=== PATIENT | female | born 1940 | race Caucasian/White ===

== ENCOUNTER 2021-11-10 09:53 | Outpatient (CLI) | payer MEDICARE, SELFPAY ==
[2021-11-10 12:21] LABS: Albumin* 4.2 g/dL (3.3-5.0); Chloride* 101 mmol/L (96-114)
[2021-11-10 12:22] LABS: Potassium* 4.3 mmol/L (3.6-5.1); Sodium* 138 mmol/L (135-149)
[2021-11-10 12:24] LABS: Aspartate Amino Transferase* 21 U/L (12-35); Bilirubin Total* 0.7 mg/dL (0.1-1.5); Blood Urea Nitrogen* 25 mg/dL (7-30); Carbon Dioxide* 29 mmol/L (20-32); Cholesterol* 205 mg/dL (90-199); Estimated Glomerular Filt Rate 56 ml/min
[2021-11-10 12:25] LABS: Alanine Aminotransferase* 13 U/L (4-35); Alkaline Phosphatase* 92 U/L (40-150); Glucose* 140 mg/dL (60-115); HDL Cholesterol* 54 mg/dL (>=50); LDL Cholesterol Calculated 127 mg/dL (<100); Triglycerides* 121 mg/dL (40-149)
== END 2021-11-10 09:54 | disposition home or self-care (01) ==
PROVIDERS: PCP Internal Medicine; Visit Provider Internal Medicine
DX: E03.9 Hypothyroidism, unspecified (principal); I10 Essential (primary) hypertension; E21.3 Hyperparathyroidism, unspecified; M10.9 Gout, unspecified; R73.01 Impaired fasting glucose; Z13.6 Encounter for screening for cardiovascular disorders
CPT/HCPCS: 80053; 80061; 84443

== ENCOUNTER 2021-11-14 13:58 | Outpatient (CLI) | payer MEDICARE, SELFPAY ==
--- NOTE | 2021-11-14 14:00 | CRLHL7_ITS ---
For Patients: As a result of the Cures Act, medical imaging exams and procedure reports are released immediately into your electronic medical record. You may view this report before your referring provider. If you have questions, please contact your health care provider. BILATERAL DIGITAL SCREENING MAMMOGRAM WITH COMPUTER-AIDED DETECTION, 11/14/2021 CLINICAL HISTORY: Routine screening exam. COMPARISON: 10/21/2020, 09/17/2019, 05/15/2018, 05/10/2017 TECHNIQUE: Digital mammogram in CC and MLO projections including computer-aided detection (CAD). BREAST COMPOSITION: There are scattered areas of fibroglandular density. FINDINGS: RIGHT Breast: Focal asymmetric density within the retroareolar plane, 3 cm from the nipple. LEFT Breast: No suspicious findings. IMPRESSION: RIGHT breast asymmetry/mass. RECOMMENDATIONS: Additional mammographic views of the RIGHT breast including 3D spot compression CC/MLO. RIGHT breast ultrasound may also be required. The [facility] will contact the patient for follow-up. BI-RADS Category 0: Incomplete - Need Additional Imaging Evaluation and/or Prior Mammograms for Comparison A lay language report of this examination will be provided to the patient. Dictated by Mainsh Sutherland MD @ 11/15/2021 8:25:28 AM CRL:libby RD/Dictated by: Manish Sutherland MD @ 11/15/2021 8:25:00 AM (Electronically Signed)
== END 2021-11-14 13:59 | disposition home or self-care (01) ==
LOC: MAMMO 13:59
PROVIDERS: PCP Internal Medicine; Visit Provider Internal Medicine
DX: Z12.31 Encounter for screening mammogram for malignant neoplasm of breast (principal); N63.10 Unspecified lump in the right breast, unspecified quadrant
CPT/HCPCS: 77067

== ENCOUNTER 2021-11-24 10:26 | Outpatient (CLI) | payer MEDICARE, SELFPAY ==
--- NOTE | 2021-11-24 10:45 | CRLHL7_ITS ---
For Patients: As a result of the Cures Act, medical imaging exams and procedure reports are released immediately into your electronic medical record. You may view this report before your referring provider. If you have questions, please contact your health care provider. DIGITAL DIAGNOSTIC RIGHT MAMMOGRAM USING TOMOSYNTHESIS AND COMPUTER-AIDED DETECTION RIGHT BREAST ULTRASOUND CLINICAL HISTORY: RIGHT breast mass/asymmetry. COMPARISON: 11/14/2021. TECHNIQUE: Digital RIGHT mammogram in two projections. Tomosynthesis and CAD utilized. Real-time ultrasound imaging of RIGHT breast with imaging documentation. BREAST COMPOSITION: The breast is heterogeneously dense, which may obscure small masses. FINDINGS: 3D spot compression CC/MLO RIGHT breast mammograms submitted. Persistent nodular density within the upper RIGHT breast without architectural distortion. Benign calcifications. Targeted sonogram RIGHT breast 12 o`clock 2 cm from the nipple performed. Dislocation there is a simple anechoic circumscribed cyst measuring 5 x 3 x 5 millimeters. IMPRESSION: Simple cyst RIGHT breast 12 o`clock 2 cm from the nipple measuring 5 millimeters. No evidence of malignancy. RECOMMENDATIONS: Annual BILATERAL screening mammography. Results and recommendations discussed with the patient. BI-RADS Category 2: Benign A lay language report of this examination will be provided to the patient. Dictated by Manish Sutherland MD @ 11/24/2021 11:29:31 AM jj/Dictated by: Manish Sutherland MD @ 11/24/2021 11:29:00 AM (Electronically Signed)
--- NOTE | 2021-11-24 11:15 | CRLHL7_ITS ---
For Patients: As a result of the Cures Act, medical imaging exams and procedure reports are released immediately into your electronic medical record. You may view this report before your referring provider. If you have questions, please contact your health care provider. PLEASE SEE DIGITAL DIAGNOSTIC RIGHT MAMMOGRAM PERFORMED SAME DAY CRL:vernon junior/Dictated by: Manish Sutherland MD @ 11/24/2021 11:29:00 AM (Electronically Signed)
== END 2021-11-24 10:27 | disposition home or self-care (01) ==
LOC: MAMMO 10:26
PROVIDERS: PCP Internal Medicine; Visit Provider Internal Medicine
DX: N63.10 Unspecified lump in the right breast, unspecified quadrant (principal); N60.01 Solitary cyst of right breast; R92.8 Other abnormal and inconclusive findings on diagnostic imaging of breast
CPT/HCPCS: 76642; 77065; G0279

== ENCOUNTER 2022-05-09 10:11 | Outpatient (CLI) | payer MEDICARE, SELFPAY | END 2022-05-09 10:12 | disposition home or self-care (01) | PROVIDERS: PCP Internal Medicine; Visit Provider Internal Medicine | DX: E21.3 Hyperparathyroidism, unspecified (principal); R73.01 Impaired fasting glucose; E03.9 Hypothyroidism, unspecified; I10 Essential (primary) hypertension | CPT/HCPCS: 80053; 80061; 84443 ==

== ENCOUNTER 2022-12-26 14:34 | Outpatient (CLI) | payer MEDICARE, SELFPAY ==
--- NOTE | 2022-12-26 15:00 | CRLHL7_ITS ---
For Patients: As a result of the Century Cures Act, medical imaging exams and procedure reports are released immediately into your electronic medical record. You may view this report before your referring provider. If you have questions, please contact your health care provider. RIGHT SCREENING MAMMOGRAM WITH COMPUTER-AIDED DETECTION TECHNIQUE: CC and MLO views were obtained. These mammographic images have been obtained using full-field digital technique. These mammographic images were interpreted with the benefit of computer-aided detection. COMPARISON FILM: 11/24/21, 11/14/21, 10/21/20. FINDINGS: There are scattered areas of fibroglandular density IMPRESSION: There is no radiographic evidence for malignancy. ASSESSMENT: BI-RADS Category 2: Benign RECOMMENDATION: Routine screening mammogram in 1 year. A lay language report of this examination will be provided to the patient. Manish Sutherland M.D. Diagnostic Radiologist [email or web address] TEENA/Dictated by: Manish Sutherland MD @ 12/27/2022 8:53:00 AM (Electronically Signed)
== END 2022-12-26 14:35 | disposition home or self-care (01) ==
LOC: MAMMO 14:35
PROVIDERS: PCP Internal Medicine; Visit Provider Internal Medicine
DX: Z12.31 Encounter for screening mammogram for malignant neoplasm of breast (principal)
CPT/HCPCS: 77063; 77067

== ENCOUNTER 2023-05-22 10:19 | Outpatient (CLI) | payer MEDICARE, SELFPAY | END 2023-05-22 10:20 | disposition home or self-care (01) | PROVIDERS: PCP Internal Medicine; Visit Provider Internal Medicine | DX: I10 Essential (primary) hypertension (principal); E03.9 Hypothyroidism, unspecified | CPT/HCPCS: 80053; 80061; 84443 ==

== ENCOUNTER 2023-12-28 12:53 | Outpatient (CLI) | payer MEDICARE, SELFPAY ==
--- NOTE | 2023-12-28 13:00 | CRLHL7_ITS ---
For Patients: As a result of the Century Cures Act, medical imaging exams and procedure reports are released immediately into your electronic medical record. You may view this report before your referring provider. If you have questions, please contact your health care provider. RIGHT SCREENING MAMMOGRAM WITH COMPUTER-AIDED DETECTION AND TOMOSYNTHESIS TECHNIQUE: CC and MLO views were obtained. These mammographic images have been obtained using full-field digital technique. These mammographic images were interpreted with the benefit of computer-aided detection. Breast Tomosynthesis was used in this interpretation. COMPARISON FILM: 12/26/22, 11/24/21, 11/14/21. FINDINGS: The breasts are heterogeneously dense, which may obscure small masses IMPRESSION: There is no radiographic evidence for malignancy. ASSESSMENT: BI-RADS Category 2: Benign RECOMMENDATION: Routine screening mammogram in 1 year. A lay language report of this examination will be provided to the patient. Manish Sutherland M.D. Diagnostic Radiologist [email or web address] TEENA/Dictated by: Manish Sutherland MD @ 12/31/2023 12:40:00 PM (Electronically Signed)
== END 2023-12-28 12:54 | disposition home or self-care (01) ==
LOC: MAMMO 12:55
PROVIDERS: PCP Internal Medicine; Visit Provider Internal Medicine
DX: Z12.31 Encounter for screening mammogram for malignant neoplasm of breast (principal); R92.333 Mammographic heterogeneous density, bilateral breasts
CPT/HCPCS: 77063; 77067

== ENCOUNTER 2024-05-15 10:14 | Outpatient (CLI) | payer MEDICARE, SELFPAY | END 2024-05-15 10:15 | disposition home or self-care (01) | PROVIDERS: PCP Internal Medicine; Visit Provider Internal Medicine | DX: I10 Essential (primary) hypertension (principal); E78.5 Hyperlipidemia, unspecified; E03.9 Hypothyroidism, unspecified; E21.3 Hyperparathyroidism, unspecified | CPT/HCPCS: 80053; 80061; 84443 ==

== ENCOUNTER 2024-05-27 10:13 | Outpatient (RCR) | payer MEDICARE, SELFPAY ==
--- NOTE | 2024-05-27 12:15 | OT.OPGNE2 ---
OT Outpatient General/Neuro Eval OT Outpatient General/Neuro Eval* Start: 05/27/24 10:50 Freq: Status: Active Protocol: Document 05/27/24 10:51 CSS (Rec: 05/27/24 12:12 CSS [id number]) E-signed By Melania Fair OTR/L OT Outpatient Evaluation Details Type Type Eval Complexity Low Insurance Information Insurance Information Insurance Information Medicare B Outpatient History/Precautions Current Condition Referring Provider Dr. Acosta Medical Diagnoses R41.3- other amnesia Medical/Functional History Medical History Reviewed Yes Prior Level of Function/Mobility indep with ADLs/IADLs with exception of driving. Pt edits local newspaper. Social History Type of Dwelling Assisted Living Lives With: Alone Patient Subjective Subjective Patient Subjective Pt reports difficulty with word retrieval, specifically of people's names. Pt notes it has been happening more frequently. Pt also notes forgetfulness and provides example of going to kitchen and not remembering what she needs; she states its momentary and often can self correct. Pt notes this can happen multiple times a day. Pt notes indep with ADLs/IADLs . Pt does not drive; [facility] provides transportation to pt. Pt lives at [facility] at [facility]. Pt notes sometimes forgets to take her evening pills. Pt notes that she puts a honing machine operator semiautomatic her calendar at her door to indicate she's fine to the nursing staff however she has forgotten to do that 3x this month and she states that is new. Pain Assessment Pain Pain No Cognitive Assessments Performed Cognitive Assessments Performed [place] Cognitive Assessment (MOCA) Results MOCA 8.2 administered today. Pt scored 29/30 indicating normal cognitive functioning. Vision/Hearing Vision Vision Changes Comments Pt had cataract surgery- approx 10 years ago; Assessment Assessment Assessment Pt is an 84 year old female who is referred to OT due to memory concerns. Pt scoring within normal range on cog assessment today. OT educates on compensatory techniques but pt is not receptive. OT also suggests speech therapy referral due to word finding difficulties and higher level cog testing, but pt declines at this time. Pt will continue with crossword puzzles, reading, and editing newspaper for cognitive tasks/ activities. She reports her cognition concerns do not impact her daily life where she needs ongoing therapy. Occupational Therapy Treatment Plan - OP Goals Goals Pt will participate in cog testing. - goal met Pt will be able to verbalize compensatory strategies to help with IADLs. - goal in progress Treatment Plan Treatment Plan Evaluation,Self-Care/Home Management,Education Expected Frequency 1x Week Expected Duration 4-6 Weeks Certification Certification Statement I Certify That: Therapy Services Provided, Therapy Plan Established, Therapy Plan Reviewed Certification Information Clinic ID # [id number] Initial Certification Date 05/27/24 Provider Signature Required Yes Provider Signature Shows Agreement With POC & Medical Necessity Physician NPI Number Write NPI# Here Physician Comment/Change Comment or Changes Physician Signature & Date Requested Please Sign/Date Here
== END 2024-09-24 23:59 | disposition home or self-care (01) ==
PROVIDERS: PCP Internal Medicine; Visit Provider Internal Medicine
DX: R41.3 Other amnesia (principal); Z51.89 Encounter for other specified aftercare
CPT/HCPCS: 97165; 97535

== ENCOUNTER 2024-10-20 01:06 | Outpatient (CLI) | payer MEDICARE, SELFPAY | END 2024-10-20 01:07 | disposition home or self-care (01) | LOC: AMB 10-21 10:21 | PROVIDERS: PCP Internal Medicine; Visit Provider Family Medicine | DX: R53.1 Weakness (principal) | CPT/HCPCS: A0425; A0429 ==

== ENCOUNTER 2024-10-20 01:55 | Emergency (ER) | payer MEDICARE, SELFPAY ==
[2024-10-20 02:04] VITALS: BP 145/68; PULSE 119; RESP 16; TEMP 36.7; O2SAT 97; BMI 25.9
--- NOTE | 2024-10-20 02:38 | ED.GENADULT ---
HPI - General Adult General Chief complaint: Laceration/Wound Stated complaint: fall Time Seen by Provider: 10/20/24 02:01 Source: patient and EMS History of Present Illness HPI narrative: 84-year-old female presents to the emergency department for evaluation of a skin tear on her right lower leg. Patient lives in an assisted living but does not really receive any services. She uses a walker to ambulate at baseline. She reports that her bed is extremely high. She has to almost jump up into it but likes the fact that it is easy to get out of. She reports that she went to jump up into the bed tonight and did not make it all the way, sliding down the side of the bed and falling onto the ground. She received a cut to her right calf area and needed assistance getting up. She denies pain in any other area. She specifically denies ankle pain, knee pain, hip pain, back pain, neck pain, shoulder pain, wrist or elbow pain or head pain. She is confident there was no loss of consciousness. There were not any other signs of major injury at the scene per EMS. They tried applying some bleed stopping powder with no significant improvement. She does not take any anticoagulants. She has a history of hypertension, reports use of amlodipine and losartan. No fever or recent illness. No neurological changes. Adamantly reports that the fall was purely mechanical. ROS is negative for generalized, HEENT, musculoskeletal, neurological or other skin concerns besides the cut to the right leg. Related Data Home Medications ?Medication ?Instructions ?Recorded ?Confirmed cholecalciferol (vitamin D3) 10 10 mcg PO QDAY 11/10/21 05/15/24 mcg (400 unit) tablet ibuprofen 200 mg capsule 200 mg PO .Q6h Prn 11/10/21 05/15/24 multivitamin 1 tab PO QDAY 11/10/21 05/15/24 calcium 333 mg-vit D3 200 1 tab PO ONCE 05/15/24 05/15/24 unit-magnesium 133 mg-zinc 5 mg tablet prednisone 20 mg tablet 20 mg PO BID PRN 05/15/24 05/15/24 vitamins A,C,D-xmri-sypoud 4,296 1 cap PO BID 05/15/24 05/15/24 mcg-226 mg-90 mg capsule (PreserVision AREDS) Previous Rx's ?Medication ?Instructions ?Recorded amlodipine 2.5 mg tablet (Norvasc) 2.5 mg PO QDAY Hypertension #90 05/15/24 tabs losartan 100 mg tablet 100 mg PO QDAY Hypertension #90 05/15/24 tabs levothyroxine 75 mcg tablet 75 mcg PO QDAY #90 tabs 05/20/24 Allergies Allergy/AdvReac Type Severity Reaction Status Date / Time Lisinopril Allergy Mild nausea Uncoded 05/15/24 09:53 PFSH PFS Medical History Rheumatic fever ?I00 - Rheumatic fever without heart involvement (ICD-10) Memory deficit ?R41.3 - Other amnesia (ICD-10) Macular degeneration ?H35.30 - Unspecified macular degeneration (ICD-10) Surgical History H/O mastectomy ?Z90.10 - Acquired absence of unspecified breast and nipple (ICD-10) History of hysterectomy ?Z90.710 - Acquired absence of both cervix and uterus (ICD-10) Social History What is your current living situation?: I presently have a place to live Problems where you live: no known problems In the past 12 months, utilities in danger of being shut off: no In past 12 months, lack of transportation kept you from medical appts, meetings, work, or getting things needed for daily living: no In the past 12 mos, have been you worried that your food would run out before you had money to buy more?: never true In the past 12 mos, the food you bought just didn't last and you didn't have money to buy more?: never true Smoking Status: Never smoker Second hand tobacco smoke exposure: No How often do you have a drink containing alcohol: never AUDIT-C Alcohol total score: 0 Non-prescribed substance use: denies use How often does anyone, including family, friends and others, physically hurt you: never How often does anyone, including family, friends and others, insult or talk down to you: never How often does anyone, including family, friends and others, threaten you with harm: never How often does anyone, including family, friends and others, scream or curse at you: never Exam Const: Vital Signs, click to edit/add: Vital Signs - 24 hr 10/20/24 02:04 Temperature 98.1 F Pulse Rate [Pulse Oximeter] 119 H Respiratory Rate 16 Blood Pressure [Ri ght Upper Arm] 145/68 H Pulse Oximetry 97 Oxygen Delivery Me thod Room Air Documenting provider has reviewed patient's vital signs: yes Common normals: no apparent distress General appearance: cooperative Other: Very mild memory impairment but is able to list her medications, good historian on the details of tonight. Does appear well nourished and well hydrated. HENMT: Common normals: normocephalic, moist oral mucous membranes, oropharynx normal and dentition normal Head and scalp: normocephalic Other: No signs of tongue biting or seizure Eye: Common normals: PERRL General eye: normal appearance of both eyes Pupil: PERRL Neck & C-Spine: Common normals: full ROM General: normal visual inspection Resp: Common normals: normal respiratory effort and clear to auscultation bilaterally Effort & inspection: able to speak in complete sentences Auscultation: clear to auscultation bilaterally Cardio: Common normals: regular rate, regular rhythm, S1 normal heart sound and S2 normal heart sound Rate: regular rate Rhythm: regular rhythm Heart sounds: S1 normal and S2 normal GI: Common normals: Normal to inspection, nondistended, normoactive bowel sounds present, soft to palpation and non-tender Palpation: soft Extremity: Other: Skeletal survey revealing no tenderness to the clavicles, upper arms, lower arms, wrists or hands. No palpable tenderness to the pelvis, suprapubic area, femurs, knees, ankles or feet. There are many age related degenerative changes and joint enlargements but no effusions bruising or signs of acute injury to these. On the right mid medial townsend, there is a 4 cm wide by 1 cm tall curved skin tear, epidermal depth in midline. Some dermal involvement but no soft tissue, muscle or underlying tissues. No evidence of foreign bodies. With counter traction, skin does reapproximate. Neuro: Common normals: moves all extremities Speech: speech normal Other: After correction of laceration, ?road test? shows that patient can stand and ambulate with her walker but does seem fairly frail. There were no new appreciated areas of pain or movement deficits with this test Psych: Common normals: cooperative Appearance: grossly normal Insight: fair Judgement: fair Skin: Common normals: no rashes or lesions noted General skin exam: no rashes or lesions noted Course Course ED Course: 84-year-old female with mechanical fall resulting in laceration of right townsend. Counseled on management options. Sutures certainly would be fine but I think she will tolerate Steri-Strips better and it would not require the need to return to the clinic for stitch removal. She would prefer this management option. Area was cleansed gently with soap and water, no signs of foreign body seen, patted dry. Area in question was covered with Mastisol, then too long Steri-Strips were used to reapproximate the wound. Since she has so much dry skin, I did add to extra wide Steri-Strips in the opposite direction horizontally for reinforcement and sealed just the edges of this large rectangle in Dermabond. Wound closed very well and was hemostatic at end of procedure. I spent some time thin questioning patient on safety in her home. The bed is certainly too high for her safety at this time. I reviewed options including replacing her current box spring for a shorter option or removing the bed frame to allow the box spring and mattress to sit on the floor. She tells me she would not want to do this because that would be harder to get up. I show her different bed mobility aids from a printout that would be better options for her and have included 1 of these handouts with her discharge paperwork. She will continue use of the walker for ambulation but I do think her frailty is starting to show and she should consider a higher level of care within the next few months. Written instructions for this were provided as well. Counseled that Tylenol is safe to use for aches and pains and any alarm symptoms would warrant return to the emergency room. Her son is going to pick her up. She verbalizes understanding and agreement and no further questions. Vital Signs Vital signs: Initial Vital Signs Temperature 98.1 F 10/20/24 02:04 Temperature Source Temporal Artery Scan 10/20/24 02:04 Pulse Rate 119 H 10/20/24 02:04 Respiratory Rate 16 10/20/24 02:04 Blood Pressure 145/68 H 10/20/24 02:04 Blood Pressure Mean 93 10/20/24 02:04 Blood Pressure Position Sitting 10/20/24 02:04 Pulse Oximetry 97 10/20/24 02:04 Oxygen Delivery Method Room Air 10/20/24 02:04 Vital Signs Temperature 98.1 F 10/20/24 02:04 Pulse Rate 119 H 10/20/24 02:04 Respiratory Rate 16 10/20/24 02:04 Blood Pressure 145/68 H 10/20/24 02:04 Pulse Oximetry 97 10/20/24 02:04 Oxygen Delivery Method Room Air 10/20/24 02:04 Temperature 98.1 F 10/20/24 02:04 Pulse Rate 119 H 10/20/24 02:04 Respiratory Rate 16 10/20/24 02:04 Blood Pressure 145/68 H 10/20/24 02:04 Pulse Oximetry 97 10/20/24 02:04 Oxygen Delivery Method Room Air 10/20/24 02:04 Discharge Plan Discharge Clinical Impression: Skin tear of lower leg without complication Patient Disposition: Home w/ Parent or Adult Condition: Improved Instructions: Skin Adhesive Strips (ED) Additional Instructions: As we discussed, the tear in your skin was not particularly deep so we were able to close this with some Steri-Strips and special medical glue. Those special strips will stay in place for about 1-2 weeks and allow the skin to heal underneath in the meantime. We covered it with a dressing just for today but you do not need to leave it covered. It is okay to shower and clean as usual but do not aggressively scrubbed over those strips, as the underlying skin will require time to heal. We did not detect any major signs of injury from your fall. It is okay to use Tylenol 1000 mg 3 times daily as needed for general aches and pains. I do have significant concerns about safety within your apartment since her bed is so high. Please consider asking family, friends or hiring a line appliance assembler to talk to you about options to lower the bed. For many people, buying a smaller box spring, moving to a lower position on your head and footboard or removing the head in footboard entirely can make a huge difference in safety. Many people like having the bed high because it is easier to get out of but this often leads to more falls. Having the bed lower and use of a assistive device next to the bed tends to be most helpful. I will give you a print out of 1 of these such devices to consider purchasing. We have notice that your mobility seems to certainly be declining. You may need to consider use of a wheelchair or a higher level of care in the next few months. I do encourage you to start researching these options. Activity Level: Activity as Tolerated and Use Walker Discharge Diet: Regular Prescriptions: No Action ibuprofen 200 mg capsule 200 mg PO .Q6h Prn multivitamin Tablet 1 tab PO QDAY cholecalciferol (vitamin D3) 10 mcg (400 unit) tablet 10 mcg PO QDAY calcium carb-D3-mag [id number] 333 mg-200 unit -133 mg-5 mg tablet 1 tab PO ONCE Rx Instructions: administer with a meal prednisone 20 mg tablet 20 mg PO BID PRN PreserVision AREDS 4,296 mcg-226 mg-90 mg capsule 1 cap PO BID losartan 100 mg tablet 100 mg PO QDAY Qty: 90 3RF amlodipine [Norvasc] 2.5 mg tablet 2.5 mg PO QDAY Qty: 90 3RF levothyroxine 75 mcg tablet 75 mcg PO QDAY Qty: 90 3RF Follow Up/Referrals: Chris Acosta MD [Primary Care Provider, Internal Medicine] Stand Alone Forms: LightTable Info Instructions
[2024-10-20 02:41] VITALS: BP 145/68; PULSE 119; RESP 16; TEMP 36.7
[2024-10-20 02:54] VITALS: BP 135/74; PULSE 100; RESP 16; TEMP 36.7; O2SAT 97
== END 2024-10-20 03:10 | disposition home or self-care (01) ==
PROVIDERS: Emergency Provider Family Medicine; PCP Internal Medicine
DX: S81.811A Laceration without foreign body, right lower leg, initial encounter (principal); W26.9XXA Contact with unspecified sharp object(s), initial encounter
CPT/HCPCS: 12002; 99282; 99283

== ENCOUNTER 2024-10-20 16:25 | Outpatient (CLI) | payer MEDICARE, SELFPAY | END 2024-10-20 16:26 | disposition home or self-care (01) | LOC: AMB 10-21 11:18 | PROVIDERS: PCP Internal Medicine; Visit Provider Emergency Medicine Emergency Medical Services | DX: R53.1 Weakness (principal) | CPT/HCPCS: A0425; A0427 ==

== ENCOUNTER 2024-10-20 16:59 | Emergency (ER) | payer MEDICARE, SELFPAY ==
[2024-10-20] VITALS (24 sets, daily range): BP systolic 131–176; BP diastolic 57–113; PULSE 86–98; RESP 8–21; TEMP 36.9; O2SAT 75–99; BMI 25.6
--- NOTE | 2024-10-20 17:51 | ED.WEAKNESS ---
HPI - Weakness General Time Seen by Provider: 17:51 Date Seen: 10/20/24 Chief complaint: Weakness Stated complaint: Fall/Weakness Time Seen by Provider: 10/20/24 17:16 Source: patient, EMS and RN notes reviewed Mode of arrival: EMS Limitations: no limitations History of Present Illness HPI Narrative: This 84-year-old female is brought in by the ambulance from her assisted living on [facility]. She lives independent in this assisted living. She did come in overnight, had a skin tear after not being able to get up into her bed, fell. She notes after she got home, later could not get out of her recliner, could not get off the toilet by herself. She has been walker dependent since 1999 for per her report. She ambulates with her walker fine usually. This weakness is new. She felt like she had a temperature earlier, was 100? F for her but is afebrile here. She notes no pain anywhere, denies any focal symptoms respiratory issues, she does not feel ill just weak. She has no abdominal symptoms, she has decreased sensation her legs, right is worse than the left, this is baseline for her. She has had urinary tract infections remotely in the past, does not feel like she has urinary symptoms now. She has no source of illness on questioning. Related Data Home Medications ?Medication ?Instructions ?Recorded ?Confirmed cholecalciferol (vitamin D3) 10 10 mcg PO QDAY 11/10/21 05/15/24 mcg (400 unit) tablet ibuprofen 200 mg capsule 200 mg PO .Q6h Prn 11/10/21 05/15/24 multivitamin 1 tab PO QDAY 11/10/21 05/15/24 calcium 333 mg-vit D3 200 1 tab PO ONCE 05/15/24 05/15/24 unit-magnesium 133 mg-zinc 5 mg tablet prednisone 20 mg tablet 20 mg PO BID PRN 05/15/24 05/15/24 vitamins A,C,Y-eabk-olqjat 4,296 1 cap PO BID 05/15/24 05/15/24 mcg-226 mg-90 mg capsule (PreserVision AREDS) Previous Rx's ?Medication ?Instructions ?Recorded amlodipine 2.5 mg tablet (Norvasc) 2.5 mg PO QDAY Hypertension #90 05/15/24 tabs losartan 100 mg tablet 100 mg PO QDAY Hypertension #90 05/15/24 tabs levothyroxine 75 mcg tablet 75 mcg PO QDAY #90 tabs 05/20/24 Allergies Allergy/AdvReac Type Severity Reaction Status Date / Time Lisinopril Allergy Mild nausea Uncoded 05/15/24 09:53 Review of Systems Status of ROS: Reports: 6 or more systems reviewed and unremarkable except as noted in History and below PFSH PFS Medical History Rheumatic fever ?I00 - Rheumatic fever without heart involvement (ICD-10) Memory deficit ?R41.3 - Other amnesia (ICD-10) Macular degeneration ?H35.30 - Unspecified macular degeneration (ICD-10) Surgical History H/O mastectomy ?Z90.10 - Acquired absence of unspecified breast and nipple (ICD-10) History of hysterectomy ?Z90.710 - Acquired absence of both cervix and uterus (ICD-10) Social History What is your current living situation?: I presently have a place to live Problems where you live: no known problems In the past 12 months, utilities in danger of being shut off: no In past 12 months, lack of transportation kept you from medical appts, meetings, work, or getting things needed for daily living: no In the past 12 mos, have been you worried that your food would run out before you had money to buy more?: never true In the past 12 mos, the food you bought just didn't last and you didn't have money to buy more?: never true Smoking Status: Never smoker Second hand tobacco smoke exposure: No How often do you have a drink containing alcohol: never AUDIT-C Alcohol total score: 0 Non-prescribed substance use: denies use How often does anyone, including family, friends and others, physically hurt you: never How often does anyone, including family, friends and others, insult or talk down to you: never How often does anyone, including family, friends and others, threaten you with harm: never How often does anyone, including family, friends and others, scream or curse at you: never Exam Const: Vital Signs, click to edit/add: Vital Signs - 24 hr 10/20/24 17:13 10/20/24 18:58 10/20/24 19:31 Temperature 98.4 F Pulse Rate 90 Pulse Rate [Pulse Oximeter] 95 Respiratory Rate 18 13 Blood Pressure 149/69 H Blood Pressure [Ri ght Upper Arm] 131/57 L Pulse Oximetry 95 97 Oxygen Delivery Me thod Room Air 10/20/24 20:02 Temperature Pulse Rate Pulse Rate [Pulse Oximeter] Respiratory Rate 11 L Blood Pressure Blood Pressure [Ri ght Upper Arm] Pulse Oximetry Oxygen Delivery Me thod This 84-year-old female is alert, interactive, no apparent distress. She is very pleasant, articulate, speech is normal. Face atraumatic, sclera clear, conjugate gaze. Neck is supple, no masses. Lungs are clear, no wheezing or crackles, no tachypnea, no accessory muscle use. CV regular rate and rhythm, no significant murmur heard. Abdomen is soft, nontender, nondistended, no organomegaly. She has about 3 to 4+ edema of her lower extremities, there is no area of warmth. She has a bandage on her right mid leg, did peak underneath it and see Steri-Strips, skin tear seems to be in good opposition with the Steri-Strips. I note no focal warmth or visible changes of cellulitis of her lower extremities. Documenting provider has reviewed patient's vital signs: yes Course Course ED Course: This is a patient with complaint of increasing weakness. She reports a fever at home. Infectious etiology certainly needs to be considered. We have discussed that we will do blood work, look at portable chest x-ray and obtain urinalysis. Will also get a triple viral swab. Right now she is hemodynamically stable, is not meeting any criteria for sepsis, afebrile here. If she does spike a fever or has clinical changes, may need to consider blood cultures in fluid resuscitation. At this time she does not require any of this on presenting examination and vitals. Reevaluation(s) Time of Reevaluation #1: 19:18 Reevaluation #1: Reviewed with patient that her liver enzymes and troponin are elevated. She is having no pain. She is not short of breath, not tachypneic. Re-evaluated her abdomen, has no abdominal pain on palpation. Now that she is in a room and not in the hallway, do see that there might be some suggestion of scleral icterus, bilirubin is elevated. She understands were going to proceed with CT of her chest abdomen pelvis, will give her some IV fluids as her estimated creatinine clearance is lower. Time of Reevaluation #2: 20:58 Reevaluation #2: Reviewed with Loli her CT findings. The radiologist had called to let me know. I had also spoken with her son. She understands that this is likely surgical, this is not something we are going to be able to do here. I did confirm this with our surgeon, this is beyond our scope of care here in our hospital. We also reviewed with Loli that her heart enzyme is elevated, likely indicating strain on her heart. She is not having any abdominal pain, no chest pain. I will be ordering antibiotics, have ordered Zosyn 3.375 mg, further doses can be lowered. She understands she will need transfer and thus will likely be surgical. We are looking to [facility] system for transfer. Consultations Consultation #1: Did speak with Dr. Henderson the general surgeon for [facility]. We reviewed the case. He will accept on behalf the general surgery. They will be paging out the hospitalist. 9:55 p.m.: Did speak with the hospitalist from [facility] Dr. Garcia. Reviewed patient's case, he will accept. There is up to 8 hour bed delay. We will update them if there is any change in patient's status. Time: 21:36 Vital Signs Vital signs: Initial Vital Signs Temperature 98.4 F 10/20/24 17:13 Temperature Source Temporal Artery Scan 10/20/24 17:13 Pulse Rate 95 10/20/24 17:13 Respiratory Rate 18 10/20/24 17:13 Blood Pressure 131/57 L 10/20/24 17:13 Blood Pressure Mean 81 10/20/24 17:13 Blood Pressure Position Supine 10/20/24 17:13 Pulse Oximetry 95 10/20/24 17:13 Oxygen Delivery Method Room Air 10/20/24 17:13 Vital Signs Temperature 98.4 F 10/20/24 17:13 Pulse Rate 95 10/20/24 17:13 Respiratory Rate 18 10/20/24 17:13 Blood Pressure 131/57 L 10/20/24 17:13 Pulse Oximetry 95 10/20/24 17:13 Oxygen Delivery Method Room Air 10/20/24 17:13 Temperature 98.4 F 10/20/24 17:13 Pulse Rate 86 10/20/24 22:45 Respiratory Rate 13 10/20/24 23:15 Blood Pressure 172/66 H 10/20/24 23:02 Pulse Oximetry 88 10/20/24 22:45 Oxygen Delivery Method Room Air 10/20/24 17:13 Medications Administered Medications: Discontinued Medications Generic Name Dose Route Start Last Admin Trade Name Freq PRN Reason Stop Dose Admin Sodium Chloride 500 mls @ 500 mls/hr 10/20/24 19:21 10/20/24 21:34 0.9 % Sodium Chloride 500 Ml IV 10/20/24 20:20 Infused .Q1H ONE Infusion Piperacillin Sod/Tazobactam 100 mls @ 200 mls/hr 10/20/24 20:58 10/20/24 22:31 Sod 3.375 gm/ Sodium Chloride IVPB 10/20/24 20:59 Infused ONCE ONE Infusion Potassium Chloride/Sodium Chloride 1,000 mls @ 100 mls/hr 10/20/24 21:45 10/20/24 22:33 0.9 % Sodium Ch + Kcl 20 Meq/L IV 100 mls/hr .Q10H DAVID Administration MDM - Weakness Lab Data Attestation: I reviewed the patient's lab results. Labs: Lab Results 10/20/24 10/20/24 Range/Units 18:22 22:25 WBC 16.59 H (4.50-11.00) K/uL RBC 4.43 (4.00-5.20) m/uL Hgb 13.8 (12.0-16.0) gm/dL Hct 41.3 (33.0-51.0) % MCV 93 (80-100) fL MCH 31 (26-34) pg MCHC 33 (32-36) gm/dL RDW Coeff of Danish 15.3 (11.5-15.5) % Plt Count 191 (140-440) K/uL Neut % (Auto) 85.8 H (42.0-72.0) % Lymph % (Auto) 5.5 L (20-44) % [place] % (Auto) 8.2 (0.0-11.0) % Eos % (Auto) 0.0 (0.0-7.0) % Baso % (Auto) 0.1 (0.0-3.0) % Neut # (Auto) 14.20 H (1.7-7.0) K/uL Lymph # (Auto) 0.90 (0.90-2.90) K/uL [place] # (Auto) 1.40 H (0.00-0.90) K/UL Eos # (Auto) 0.00 (0.00-0.50) K/uL Baso # (Auto) 0.00 (0.00-0.30) K/uL Abs Immat Gran (auto) 0.10 (0.00-0.30) K/uL Imm/Tot Granulo (auto) 0.4 % Sodium 136 (135-149) mmol/L Potassium 3.9 (3.6-5.1) mmol/L Chloride 103 (96-114) mmol/L Carbon Dioxide 29 (20-32) mmol/L Anion Gap 4 L (7-15) mEq/L BUN 39 H (7-30) mg/dL Creatinine 1.0 (0.5-1.5) mg/dL Estimated Creat Clear 35.52 Estimated GFR 55 ml/min Glucose 130 H (60-115) mg/dL Lactate 1.3 (0.5-1.9) mmol/L Calcium 10.4 (8.4-10.6) mg/dL Magnesium 2.3 (1.5-2.6) mg/dL Total Bilirubin 4.3 H (0.1-1.5) mg/dL AST 375 H (12-35) U/L ALT 451 H (4-35) U/L Alkaline Phosphatase 161 H (40-150) U/L Troponin I 1.18 H* 0.95 H* (0.01-0.04) ng/mL C-Reactive Protein 14.7 H (0.5-1.0) mg/dL NT-Pro-B Natriuret Pep 9320 H (See Note) pg/mL Total Protein 6.6 (6.0-8.3) g/dL Albumin 3.6 (3.3-5.0) g/dL TSH 0.439 (0.270-4.200) uIU/mL SARS-CoV-2 (PCR) Negative SARS-CoV-2 (Negative) Influenza Type A (PCR) Negative PCR FLU A (Negative) Influenza Type B (PCR) Negative PCR FLU B (Negative) RSV (PCR) Negative PCR RSV (Negative) Imaging Data Chest x-ray: Attestation: I have reviewed the pertinent imaging results. Radiologist's impression: Patient: LOLI MCDONALD Facility:?[facility] Patient ID:?[id number] Site Patient ID:?[id number]. Site :?[id number] Study:?XRay-Chest 2V-10/20/2024 6:34:08 PM Ordering Physician:?Arvind Lakhani Final Report: INDICATION: Weakness. TECHNIQUE: Chest 2 views. COMPARISON: None. FINDINGS: Cardiovascular and mediastinum: Heart size is normal. Unremarkable mediastinum. Lungs and pleural spaces: Lungs are clear. No sign of infiltrate or mass. No sign of pleural effusion. No pneumothorax. Bones and soft tissues: No significant findings. IMPRESSION: Negative chest. Dictated by Abram Ball MD @ 10/20/2024 6:48:52 PM (Electronic Signature) CT Chest/Ab/Pelvis: Attestation: I have reviewed the pertinent imaging results. Radiologist's impression: Patient: LOLI MCDONALD Facility:?[facility] Patient ID:?[id number] Site Patient ID:?[id number]. Site :?[id number] Study:?CT-Chest/Abd/Pelvis W/IV-10/20/2024 7:58:22 PM Ordering Physician:Maddy Lakhani Final Report: INDICATIONS: Weakness. Elevated troponin. Elevated liver enzymes. History of breast cancer. TECHNIQUE: CT chest, abdomen and pelvis acquired with 51 cc of Isovue 370 IV contrast. COMPARISON: None. FINDINGS: Chest: No pleural or pericardial effusions. No pathologic lymphadenopathy. Atherosclerotic disease. Thoracic aorta and main pulmonary arteries are normal in caliber. 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 Coronary artery calcifications. Heart size is within normal limits. Soft tissues of the thoracic wall are unremarkable. No pneumothorax. Central airways are patent. Mild bibasilar atelectasis. Lungs are otherwise clear. Abdomen: Diffuse intra and extrahepatic biliary ductal dilatation. Common bile duct measures up to [address] evidence of choledocholithiasis. Probable cholelithiasis with gas in the gallbladder. Diffuse heterogeneity of the gallbladder wall with mild pericholecystic fat stranding. Ill-defined fluid and fat stranding contacts the 2nd portion of the duodenum there is possible fistulous communication between the gallbladder and 2nd portion of the duodenum, for example on axial images 58-61. Spleen, pancreas and adrenal glands are unremarkable. No urolithiasis, hydronephrosis or suspicious renal lesion. 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 Colonic diverticulosis without evidence of acute diverticulitis. No bowel obstruction. No pathologic lymphadenopathy or free fluid. Atherosclerotic disease. No abdominal aortic aneurysm. Pelvis: Hysterectomy. Bladder is unremarkable. Sigmoid diverticulosis without evidence of acute diverticulitis. No pelvic lymphadenopathy or free fluid. Bone windows: No acute or suspicious osseous abnormality. Degenerative changes spine and pelvis. IMPRESSION: 1. 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 2. Diffuse intra and extrahepatic biliary ductal dilatation. Common bile duct measures up to [address] evidence of choledocholithiasis. Gastroenterology consultation regarding further management recommended. 3. No evidence of acute disease in the chest. Discussed with Dr. Nolasco by telephone at 8:36 p.m. on 10/20/2024. Dictated by Raghavendra Madison MD @ 10/20/2024 8:39:22 PM Please note that all CT scans at this facility use dose modulation, iterative reconstruction, and/or weight-based dosing when appropriate to reduce radiation dose to as low as reasonably achievable. Dictated by: Raghavendra Madison MD @ 10/20/2024 20:40:02 (Electronic Signature) ECG Data Attestation: I personally reviewed and interpreted this ECG as follows: (Normal sinus rhythm, 84 beats per minute. Nonspecific T-wave changes.) ECG interpretation date: 10/20/24 ECG interpretation time: 18:26 Prior ECG tracings: not available for review Discharge Plan Discharge Clinical Impression: Cholecystitis, Elevated troponin Prescriptions: No Action ibuprofen 200 mg capsule 200 mg PO .Q6h Prn multivitamin Tablet 1 tab PO QDAY cholecalciferol (vitamin D3) 10 mcg (400 unit) tablet 10 mcg PO QDAY calcium carb-D3-mag [id number] 333 mg-200 unit -133 mg-5 mg tablet 1 tab PO ONCE Rx Instructions: administer with a meal prednisone 20 mg tablet 20 mg PO BID PRN PreserVision AREDS 4,296 mcg-226 mg-90 mg capsule 1 cap PO BID losartan 100 mg tablet 100 mg PO QDAY Qty: 90 3RF amlodipine [Norvasc] 2.5 mg tablet 2.5 mg PO QDAY Qty: 90 3RF levothyroxine 75 mcg tablet 75 mcg PO QDAY Qty: 90 3RF Follow Up/Referrals: Chris Acosta MD [Primary Care Provider, Internal Medicine] Stand Alone Forms: TRAFI Info Instructions
--- NOTE | 2024-10-20 18:01 | CRLHL7_ITS ---
For Patients: As a result of the Century Cures Act, medical imaging exams and procedure reports are released immediately into your electronic medical record. You may view this report before your referring provider. If you have questions, please contact your health care provider. INDICATION: Weakness. TECHNIQUE: Chest 2 views. COMPARISON: None. FINDINGS: Cardiovascular and mediastinum: Heart size is normal. Unremarkable mediastinum. Lungs and pleural spaces: Lungs are clear. No sign of infiltrate or mass. No sign of pleural effusion. No pneumothorax. Bones and soft tissues: No significant findings. IMPRESSION: Negative chest. Dictated by Abram Ball MD @ 10/20/2024 6:48:52 PM (Electronically Signed)
[2024-10-20 18:29] LABS: Lactate* 1.3 mmol/L (0.5-1.9)
[2024-10-20 18:30] LABS: Hematocrit* 41.3 % (33.0-51.0); Hemoglobin* 13.8 gm/dL (12.0-16.0); Immature Granulocytes Pct Auto 0.4 %; Mean Corpuscular HGB Conc 33 gm/dL (32-36); Mean Corpuscular Hemoglobin 31 pg (26-34); Mean Corpuscular Volume 93 fL (80-100); RDW Coefficient of Variation % 15.3 % (11.5-15.5); Red Blood Count* 4.43 m/uL (4.00-5.20); White Blood Count* 16.59 K/uL (4.50-11.00)
[2024-10-20 18:36] LABS: Immature Granulocytes Abs Auto 0.10 K/uL (0.00-0.30); Lymphocytes Absolute Auto 0.90 K/uL (0.90-2.90); Slide Review Reflex No
[2024-10-20 18:41] LABS: Albumin* 3.6 g/dL (3.3-5.0); Chloride* 103 mmol/L (96-114)
[2024-10-20 18:42] LABS: Potassium* 3.9 mmol/L (3.6-5.1); Sodium* 136 mmol/L (135-149)
[2024-10-20 18:44] LABS: Alanine Aminotransferase* 451 U/L (4-35); Aspartate Amino Transferase* 375 U/L (12-35); Blood Urea Nitrogen* 39 mg/dL (7-30); Creatinine* 1.0 mg/dL (0.5-1.5); Est. Creatinine Clearance* 35.52; Estimated Glomerular Filt Rate 55 ml/min
[2024-10-20 18:45] LABS: Alkaline Phosphatase* 161 U/L (40-150); Anion Gap 4 mEq/L (7-15); Bilirubin Total* 4.3 mg/dL (0.1-1.5); Calcium* 10.4 mg/dL (8.4-10.6); Carbon Dioxide* 29 mmol/L (20-32); Glucose* 130 mg/dL (60-115); Total Protein* 6.6 g/dL (6.0-8.3)
[2024-10-20 19:03] LABS: NT Pro B Type NatriureticPept* 9320 pg/mL (See Note)
[2024-10-20 19:13] LABS: PCR FLU A Negative PCR FLU A (Negative); PCR FLU B Negative PCR FLU B (Negative); PCR RSV Negative PCR RSV (Negative); SARS PCR* Negative SARS-CoV-2 (Negative)
[2024-10-20 19:15] LABS: TSH With Reflex to FT4* 0.439 uIU/mL (0.270-4.200)
--- NOTE | 2024-10-20 19:16 | CRLHL7_ITS ---
For Patients: As a result of the Century Cures Act, medical imaging exams and procedure reports are released immediately into your electronic medical record. You may view this report before your referring provider. If you have questions, please contact your health care provider. INDICATIONS: Weakness. Elevated troponin. Elevated liver enzymes. History of breast cancer. TECHNIQUE: CT chest, abdomen and pelvis acquired with 51 cc of Isovue 370 IV contrast. COMPARISON: None. FINDINGS: Chest: No pleural or pericardial effusions. No pathologic lymphadenopathy. Atherosclerotic disease. Thoracic aorta and main pulmonary arteries are normal in caliber. 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 Coronary artery calcifications. Heart size is within normal limits. Soft tissues of the thoracic wall are unremarkable. No pneumothorax. Central airways are patent. Mild bibasilar atelectasis. Lungs are otherwise clear. Abdomen: Diffuse intra and extrahepatic biliary ductal dilatation. Common bile duct measures up to [address] evidence of choledocholithiasis. Probable cholelithiasis with gas in the gallbladder. Diffuse heterogeneity of the gallbladder wall with mild pericholecystic fat stranding. Ill-defined fluid and fat stranding contacts the 2nd portion of the duodenum there is possible fistulous communication between the gallbladder and 2nd portion of the duodenum, for example on axial images 58-61. Spleen, pancreas and adrenal glands are unremarkable. No urolithiasis, hydronephrosis or suspicious renal lesion. 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 Colonic diverticulosis without evidence of acute diverticulitis. No bowel obstruction. No pathologic lymphadenopathy or free fluid. Atherosclerotic disease. No abdominal aortic aneurysm. Pelvis: Hysterectomy. Bladder is unremarkable. Sigmoid diverticulosis without evidence of acute diverticulitis. No pelvic lymphadenopathy or free fluid. Bone windows: No acute or suspicious osseous abnormality. Degenerative changes spine and pelvis. IMPRESSION: 1. 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 2. Diffuse intra and extrahepatic biliary ductal dilatation. Common bile duct measures up to [address] evidence of choledocholithiasis. Gastroenterology consultation regarding further management recommended. 3. No evidence of acute disease in the chest. Discussed with Dr. Nolasco by telephone at 8:36 p.m. on 10/20/2024. Dictated by Raghavendra Madison MD @ 10/20/2024 8:39:22 PM Please note that all CT scans at this facility use dose modulation, iterative reconstruction, and/or weight-based dosing when appropriate to reduce radiation dose to as low as reasonably achievable. Dictated by: Raghavendra Madison MD @ 10/20/2024 20:40:02 (Electronically Signed)
[2024-10-20] MEDS: 0.9 % SODIUM CHLORIDE 500 ML 500 ML IV (19:32)
[2024-10-20] MEDS: PIPERACILLIN/TAZOBACTAM 3.375 GM in 0.9 % SODIUM CHLORIDE Mini-bag 100 ML IVPB (21:27)
[2024-10-20] MEDS: 0.9 % SODIUM CH + KCL 20 mEq/L 1,000 ML 100 ML IV (22:33)
--- NOTE | 2024-10-20 23:30 | ED.NURSE ---
Pt off the floor via EMS en route to [facility]. All belongings remain with patient.
== END 2024-10-20 23:32 | disposition home or self-care (01) ==
LOC: ED 18:07
PROVIDERS: Emergency Provider Family Medicine; PCP Internal Medicine
DX: S81.811A Laceration without foreign body, right lower leg, initial encounter (principal); K81.0 Acute cholecystitis; R79.89 Other specified abnormal findings of blood chemistry
CPT/HCPCS: 12001; 36415; 71046; 71260; 74177; 80053; 81001; 83605; 83735; 83880; 84443; 84484; 85025; 86140; 87631; 96365; 99284; 99285; J2543; J7030; Q9967

== ENCOUNTER 2024-10-20 23:22 | Outpatient (CLI) | payer MEDICARE, SELFPAY | END 2024-10-20 23:23 | disposition home or self-care (01) | LOC: AMB 10-21 12:58 | PROVIDERS: PCP Internal Medicine; Visit Provider Emergency Medicine Emergency Medical Services | DX: K81.9 Cholecystitis, unspecified (principal); R79.89 Other specified abnormal findings of blood chemistry | CPT/HCPCS: A0425; A0434 ==